=== PATIENT | male | born 1990 | race African-American/Black ===

== ENCOUNTER 2019-01-11 10:50 | Emergency (ER) | payer SELFPAY ==
[~2019-01-11] VITALS: Ht 188 cm; Wt 68.0 kg
[2019-01-11] MEDS ORDERED: NKM (11:02)
[2019-01-11 11:04] VITALS: BP 100/59
[2019-01-11] MEDS ORDERED: MEDROL DOSEPAK4 MG ORAL (12:04)
[2019-01-11] MEDS ORDERED: BENADRYL25 MG ORAL (12:04)
[2019-01-11 12:16] VITALS: BP 130/67
--- NOTE | 2019-01-11 14:05 | Emergency Room Report ---
History of Present Illness General Chief Complaint: Skin Rash/Abscess Source: Patient Present Illness HPI Patient persist with a rash that has developed throughout mainly involving the bilateral upper arms upper chest and neck area Area is somewhat puritic in nature denies any pain Denies any fevers or chills denies any chest pain or short of breath patient reports that he did sleep at his Sister's house yesterday Allergies: Coded Allergies: CODEINE (Verified Allergy, Unknown, 01/11/19) Patient History Past Medical History: see triage record Pertinent Family History: none Reviewed Nursing Documentation: PMH: Agreed; PSxH: Agreed Nursing Documentation-PMH Past Medical History: No Stated History Review of Systems All Other Systems: negative except mentioned in HPI Physical Exam Vital Signs Date Time Temp Pulse Resp B/P (MAP) Pulse Ox O2 Delivery O2 Flow Rate FiO2 01/11/19 10:57 98.2 71 14 100/59 98 Room Air Sp02 EP Interpretation: reviewed, normal General Appearance: well appearing, no apparent distress Head: normocephalic, atraumatic Eyes: bilateral eye PERRL, bilateral eye EOMI ENT: hearing grossly normal, normal pharynx, TMs + canals normal, uvula midline Neck: full range of motion, supple, no meningismus, no bony tend Respiratory: lungs clear, normal breath sounds, no rhonchi, no respiratory distress, no retraction, no accessory muscle use Cardiovascular #1: regular rate, rhythm Gastrointestinal: non tender, soft Musculoskeletal: normal inspection Neurologic: alert, oriented x3 Skin: other - Patient has several areas of erythematous lesions appear to be spaced out in 2 views over the upper arms and upper chest area consistent with likely insect bite no obvious cellulitis no obvious dermatomal lesion Lymphatic: no adenopathy Medical Decision Making Diagnostic Impression: Primary Impression: insect bite Additional Impression: Rash and other nonspecific skin eruption ER Course Patient's clinical history and exam is consistent with likely insect bites They do not appear infected Patient does not have any respiratory issues at this time will have initial conservative outpatient trial and return with any worsening symptoms Last Vital Signs Date Time Temp Pulse Resp B/P (MAP) Pulse Ox O2 Delivery O2 Flow Rate FiO2 01/11/19 12:16 97.7 68 17 130/67 95 Room Air Status: improved Disposition: HOME, SELF-CARE Condition: Improved Scripts Diphenhydramine Hcl* (BENADRYL*) 25 Mg Capsule 25 MG ORAL Q8HR PRN for Itching for 7 Days, CAP Prov: Yumi Duran DO 01/11/19 Methylprednisolone (Methylprednisolone*) 4MG Dspk 4 MG ORAL DIRECTED for 6 Days, #21 EA 0 Refills Day 1: Two tablets before breakfast, one after lunch, one after dinner, and two at bedtime. If started late in the day, take all six tablets at once or divide into two or three doses, unless otherwise directed by prescriber. Day 2: One tablet before breakfast, one after lunch, one after dinner, and two at bedtime Day 3: One tablet before breakfast, one after lunch, one after dinner, and one at bedtime Day 4: One tablet before breakfast, one after lunch, and one at bedtime Day 5: One tablet before breakfast and one at bedtime Day 6: One tablet before breakfast Prov: Yumi Duran DO 01/11/19 Referrals: NOT CHOSEN IPA/MD,REFERRING (PCP) Patient Instructions: Rash, Insect Bite, [id number] Additional Instructions: Patient is provided with the discharge instructions notified to follow up with primary doctor in the next 2-3 days otherwise return to the er with any worsening symptoms. Please note that this report is being documented using [employer] technology. This can lead to erroneous entry secondary to incorrect interpretation by the dictating instrument. Yumi Duran DO Jan 11, 2019 14:05
== END 2019-01-11 12:18 | disposition home or self-care (01) ==
LOC: EMR 12:10
DX: R21 Rash and other nonspecific skin eruption (principal); S40.862A Insect bite (nonvenomous) of left upper arm, initial encounter; S10.96XA Insect bite of unspecified part of neck, initial encounter; S40.861A Insect bite (nonvenomous) of right upper arm, initial encounter; S20.369A Insect bite (nonvenomous) of unspecified front wall of thorax, initial encounter; W57.XXXA Bitten or stung by nonvenomous insect and other nonvenomous arthropods, initial encounter; Y92.9 Unspecified place or not applicable; Z88.6 Allergy status to analgesic agent
CPT/HCPCS: 99282; J7512